=== PATIENT | female | born 1940 | race Caucasian/White ===

== ENCOUNTER 2017-10-19 23:04 | Emergency (ER) | payer OTHER, MEDICARE ==
[~2017-10-19] VITALS: Ht 160 cm; Wt 86.2 kg
[~2017-10-19 23:04] MED LIST: IBUP-1479 PO; MONT10TA22 PO; NORCO5 PO; OLME1TAB23 PO; RABE20TA5 PO
[2017-10-19 23:10] VITALS: BP_SYST 152
[2017-10-20] MEDS ORDERED: IPRATROPIUM/ALBUTEROL SULFATE 3 ML AMPUL.NEB INH ONE (00:15)
[2017-10-20] MEDS ORDERED: BENA40TA2 PO (00:27)
[2017-10-20] MEDS ORDERED: AMLO5TAB4 PO (00:27)
[2017-10-20] MEDS ORDERED: ALBU8.5H8 INH (00:29)
[2017-10-20] MEDS ORDERED: UMEC1BLS IH (00:29)
[2017-10-20] MEDS ORDERED: DICL100G16 TP (00:30)
[2017-10-20] MEDS ORDERED: MELO15TA13 PO (00:30)
[2017-10-20] MEDS ORDERED: HYDR-1189 PO (00:31)
[2017-10-20] MEDS ORDERED: FLUT16SP16 NS (00:38)
[2017-10-20] MEDS ORDERED: NYSSUS PO (00:40)
[2017-10-20] MEDS ORDERED: CALC1TAB3 PO (00:41)
[2017-10-20] MEDS ORDERED: MULT-1173 PO (00:42)
[2017-10-20] MEDS ORDERED: OMEG1CAP18 PO (00:43)
[2017-10-20 01:04] VITALS: BP_SYST 147
[2017-10-20] MEDS ORDERED: PSYL3.4P6 PO (02:33)
[2017-10-20] MEDS ORDERED: ARTT OP (02:34)
== END 2017-10-20 01:04 | disposition home or self-care (01) ==
LOC: SED 23:04
DX: T48.3X1A Poisoning by antitussives, accidental (unintentional), initial encounter (principal); J20.9 Acute bronchitis, unspecified; R03.0 Elevated blood-pressure reading, without diagnosis of hypertension; Z88.2 Allergy status to sulfonamides; Z88.5 Allergy status to narcotic agent; Z79.899 Other long term (current) drug therapy; Y92.89 Other specified places as the place of occurrence of the external cause
CPT/HCPCS: 99283; J7620

== ENCOUNTER 2019-04-29 05:32 | Emergency (ER) | payer OTHER, MEDICARE ==
[~2019-04-29] VITALS: Ht 160 cm; Wt 68.9 kg
[~2019-04-29 05:32] MED LIST changes: +ALBU8.5H8 INH; +AMLO5TAB4 PO; +ARTT OP; +BENA40TA8 PO; +CALC1TAB3 PO; +DICL100G19 TP; +FLUT16SP16 NS; +HYDR-1189 PO; -IBUP-1479 PO; +MELO15TA13 PO; +MULT-1173 PO; -NORCO5 PO; +NYSSUS PO; -OLME1TAB23 PO; +OMEG1CAP18 PO; +PSYL3.4P6 PO; +RABE20TA18 PO; -RABE20TA5 PO; +UMEC1BLS IH
[2019-04-29 05:34] VITALS: BP_SYST 168
--- NOTE | 2019-04-29 05:40 | NUR ---
Patient to ER bed 7 to gown for evaluation. Side rails up. Report given to ROSA MARIA LAM.
--- NOTE | 2019-04-29 06:07 | NUR ---
Patient was BIB BLS c/o right flank and right knee pain s/p trip and fall. Per parts sales representative patient was walking up the stairs and "might have tripped on her foot" hitting her right flank on the railing. Pt denies KO and states she "might have got the wind knocked out of her." Noted minor purple discoloration to right knee. No discoloration to right flank. Per patient, pain of 5/10. No other injuries/complaints per patient or noted.
--- NOTE | 2019-04-29 06:08 | NUR ---
md mariangel Lay at bedside examining patient.
--- NOTE | 2019-04-29 07:06 | NUR ---
Report given to GENARO Escoto. All care endorsed.
--- NOTE | 2019-04-29 07:07 | NUR ---
Report received from GENARO Campbell for continuation of care.
--- NOTE | 2019-04-29 07:08 | NUR ---
Patient transported to radiology via gurney, accompanied by office automation technician.
--- NOTE | 2019-04-29 07:25 | NUR ---
Returned from radiology, back to [facility].
--- NOTE | 2019-04-29 07:26 | NUR ---
Patient reports pain level of 6/10, states that it is within tolerable limits, does not want pain medication.
--- NOTE | 2019-04-29 07:30 | NUR ---
Dr. Lay in to speak with patient.
[2019-04-29] MEDS ORDERED: HYDROcodone/ACETAMIN 5-325 MG TAB (NORCO/ VICODIN) PO ONE (07:45)
[2019-04-29 08:00] VITALS: BP_SYST 138
--- NOTE | 2019-04-29 08:00 | NUR ---
Patient given written and verbal discharge instructions and verbalizes understanding. ER MD discussed with patient the results and treatment provided. Patient in stable condition. ID arm band removed. Rx of given. Patient educated on pain management and to follow up with PMD. Pain Scale 6/10, patient states it is within tolerable limits. Opportunity for questions provided and answered. Medication side effect fact sheet provided.
== END 2019-04-29 08:00 | disposition home or self-care (01) ==
LOC: SED 05:32
DX: S20.211A Contusion of right front wall of thorax, initial encounter (principal); M17.11 Unilateral primary osteoarthritis, right knee; I10 Essential (primary) hypertension; J44.9 Chronic obstructive pulmonary disease, unspecified; Z79.899 Other long term (current) drug therapy; Z88.6 Allergy status to analgesic agent; Z88.2 Allergy status to sulfonamides; W18.39XA Other fall on same level, initial encounter; Y93.89 Activity, other specified; Y92.89 Other specified places as the place of occurrence of the external cause; Y99.8 Other external cause status
CPT/HCPCS: 71100; 73564; 81002; 99283